=== PATIENT | male | born 2005 | race Caucasian/White ===

== ENCOUNTER 2025-05-26 22:20 | Inpatient (IN) | payer OTHER ==
[~2025-05-26] VITALS: Ht 175.3 cm; Wt 89.8 kg
[2025-05-26 23:03] LABS: PLATELET COUNT, AUTOMATED 300 10^3/uL (150-450)
[2025-05-26 23:19] LABS: AMPHETAMINES LEVEL URINE NEGATIVE (NEGATIVE); BARBITURATES URINE NEGATIVE (NEGATIVE); BENZODIAZEPINES URINE NEGATIVE (NEGATIVE); CANNABINOIDS URINE NEGATIVE (NEGATIVE); COCAINE METABOLITE URINE NEGATIVE (NEGATIVE); METHADONE URINE NEGATIVE (NEGATIVE); OPIATES URINE NEGATIVE (NEGATIVE); PHENCYCLIDINE URINE NEGATIVE (NEGATIVE)
[2025-05-26 23:21] LABS: ETHYL ALCOHOL (ETHANOL) 0.204 % (0.000-0.010)
[2025-05-26 23:22] LABS: SALICYLATE LEVEL < 3.0 MG/DL (<30)
[2025-05-26 23:45] LABS: ALT/SGPT 41 U/L (7.0-40); AST/SGOT 18 U/L (<34); CALCIUM LEVEL 9.4 MG/DL (8.5-10.1); CARBON DIOXIDE LEVEL 22 MMOL/L (20-31); CHLORIDE LEVEL 104 MMOL/L (98-107); CREATININE FOR GFR 0.79 MG/DL (0.70-1.30); GLOMERULAR FILTRATION RATE > 90.0 (>60); POTASSIUM SERUM 3.8 MMOL/L (3.5-5.1); SODIUM LEVEL 141 MMOL/L (136-145)
[2025-05-27] MEDS ORDERED: IBUPROFEN 400 MG TAB PO PRN (07:40)
[2025-05-27] MEDS ORDERED: MAALOX 30 ML SUSP *UDC PO PRN (07:40)
[2025-05-27] MEDS ORDERED: MOM 30 ML SUSPENSION UDC PO PRN (07:40)
[2025-05-27] MEDS ORDERED: ACETAMINOPHEN 325 MG TAB PO PRN (07:40)
[2025-05-27] MEDS ORDERED: HOME MED LIST COMPLETE! XX SCH (08:00)
[2025-05-27 08:50] VITALS: BP 135/87; TEMP 97.7; O2SAT 96
[2025-05-27] MEDS: NICOTINE 14 MG/24 HR TRANSDERMAL TD SCH (09:54)
[2025-05-27 15:12] VITALS: BP 145/81; TEMP 98.1; O2SAT 99
[2025-05-27] MEDS: traZODone 50 MG TAB PO PRN (20:31)
[2025-05-28 06:30] VITALS: BP 136/66; TEMP 97.7; O2SAT 100
[2025-05-28 15:11] VITALS: BP 143/80; TEMP 98.6; O2SAT 95
[2025-05-29 06:34] VITALS: BP 110/59; TEMP 97.6; O2SAT 96
== END 2025-05-29 12:25 | disposition home or self-care (01) | DRG 881 ==
LOC: M ED 22:20 → M ED INP 05-27 07:37 → M PSY 05-27 08:43
PROVIDERS: ADMIT Student in an Organized Health Care Education/Training Program; ATTEND Psychiatry & Neurology Psychiatry
DX: F43.21 Adjustment disorder with depressed mood (principal); R45.851 Suicidal ideations